=== PATIENT | female | born 1990 | race American Indian/Alaskan Native ===

== ENCOUNTER 2022-06-16 21:54 | Emergency (ER) | payer MEDICAID, SELFPAY ==
[2022-06-16 22:05] VITALS: BP 144/89; PULSE 122; RESP 20; TEMP 36.8; O2SAT 98; BMI 33.3
[2022-06-16] MEDS: buPROPion SR 150 MG TAB PO (23:22)
--- NOTE | 2022-06-16 23:24 | ED_ITS ---
HPI - General Adult General Chief complaint: Extremity Injury, Upper Stated complaint: Right arm pain Time Seen by Provider: 06/16/22 22:18 History of Present Illness HPI narrative: This 31-year-old woman comes to the emergency department today because of paresthesias in her right arm and leg. She also endorses methamphetamine addiction for many years. She is unaware of any specific injury to her arm or a leg but she notices abnormal sensations there as if it is swollen. The swelling seems to be migratory. She says she also feels it in her right anterior chest and she wonders if she might have a blood clot or something like that. She has not been sick with fever or chills. She has had sweats sometimes. She is does not have shortness of breath or cough. She endorses sharp point chest pain on the right and pain near the olecranon process on the right arm and near the an kle on the right. No abdominal symptoms or other symptoms. She denies any other substance use but has been using a little bit of alcohol. Related Data Home Medications Medication Instructions Recorded Confirmed HYDROCODONE/ACET (HYDROCODONE 1 tab PO Q4HP ##0 03/14/12 BITARTRATE-ACETAMINOPHEN) alprazolam 0.5 mg tablet (Xanax) 0.5 mg PO Q8HP ##0 03/14/12 mupirocin 2 % topical ointment 2 % topical TID ##15 03/14/12 Previous Rx's Medication Instructions Recorded bupropion HCl 150 mg tablet,12 hr 150 mg PO BID #20 ea 06/16/22 sustained-release Allergies Allergy/AdvReac Type Severity Reaction Status Date / Time No Known Drug Allergies Allergy Verified 06/16/22 22:14 Review of Systems Review of Systems Narrative: Complete review of systems is negative other than as noted above. Patient History Social History Smoking Status: Current every day smoker Smoking Status: Current every day smoker tobacco type: cigarettes alcohol intake frequency: holidays/special occasions only Substance Use Type: methamphetamine Exam Narrative Exam Narrative: GENERAL: Alert, cooperative and in no distress. HEAD: Atraumatic. Normocephalic. EYES: Sclera are clear without icterus. Extraocular movements are full. ENT: No rhinorrhea. Oropharynx is moist. Mouth exam is benign. NECK: Supple. Full range of motion. CARDIOVASCULAR: Normal rate and rhythm without murmur gallop or rub. RESPIRATORY: Clear to auscultation. Breath sounds equal bilaterally. No wheezes, rales, or rhonchi. GASTROINTESTINAL: Abdomen soft, non-tender, nondistended. EXTREMITIES: No edema, full range of motion. No obvious trauma. Careful and detailed palpation of the area in question on her right elbow area and right ankle revealed no palpable or discernible abnormality at all. BACK: Normal inspection, no CVA tenderness. NEURO: Nonfocal examination, normal speech, normal gait. SKIN: No rash or erythema of visible areas PSYCH: Normally oriented. Normal range of affect. Appropriate behavior Initial Vital Signs Initial Vital Signs: Vital Signs Temperature 98.3 F 06/16/22 22:05 Pulse Rate 122 H 06/16/22 22:05 Respiratory Rate 20 06/16/22 22:05 Blood Pressure 144/89 H 06/16/22 22:05 Pulse Oximetry 98 06/16/22 22:05 Oxygen Delivery Method 06/16/22 22:05 Course Orders Ordered: Discontinued Medications Bupropion HCl (Bupropion Sr 150 Mg Tab) 150 mg PO NOW ONE Stop: 06/16/22 23:12 Last Admin: 06/16/22 23:22 Dose: 150 mg Documented By: NR Vital Signs Vital signs: Vital Signs - 8 hr 06/16/22 22:05 Temperature 98.3 F Pulse Rate 122 H Respiratory Rate 20 Blood Pressure 144/89 H Pulse Oximetry 98 Oxygen Delivery Method Room Air Medical Decision Making MDM Narrative Medical decision making narrative: My suspicion is that her methamphetamine use is causing some degree of miss perception or hypersensitivity. Clearly no abnormality is present on her arms or legs. I did initiate stimulant use disorder treatment and arrange for outpatient follow-up. Discharge Plan Departure Patient Disposition: Home Clinical Impression: Other stimulant abuse, uncomplicated, Arm paresthesia, right Activity Restrictions/Additional Instructions: No dangerous abnormality is identified in your arms or legs. You do not have a blood clot, or an infection or dangerous nerve problem. No specific treatment is recommended at this time. I recommend follow-up with primary care to discuss this and other ongoing health issues. You should call [phone] and ask for a new patient appointment at [facility]. For methamphetamine addiction I recommend you follow-up with [facility]. Call the clinic at [phone] Saturday morning and make an appointment for new patient intake to help you with your stimulant addiction. Let them know that we have started you on bupropion. You took your 1st bupropion dose today and you should take 1 pill tomorrow and 1 pill on Saturday. Starting Saturday you should take 1 in the morning and 1 in the evening and continue taking it that way moving forward. Prescriptions: New bupropion HCl 150 mg tablet sustained-release 12 hr 150 mg PO BID Qty: 20 0RF Rx Instructions: One pill daily for the 1st 3 days then 1 pill b.i.d. after that No Action HYDROCODONE/ACET (HYDROCODONE BITARTRATE-ACETAMINOPHEN) 1 tab PO Q4HP Qty: 0 alprazolam [Xanax] 0.5 MG tablet 0.5 mg PO Q8HP Qty: 0 mupirocin 2 % ointment 2 % Topical TID Qty: 15 Referrals: Miscellaneous,Doctor, [Primary Care Provider] -
[2022-06-16 23:32] VITALS: BP 144/92; PULSE 104; RESP 18; O2SAT 99
== END 2022-06-16 23:33 | disposition home or self-care (01) ==
PROVIDERS: Emergency Provider Family Medicine Addiction Medicine
DX: F15.10 Other stimulant abuse, uncomplicated (principal); R20.2 Paresthesia of skin; R07.9 Chest pain, unspecified
CPT/HCPCS: 99283

== ENCOUNTER 2024-09-20 12:08 | Emergency (ER) | payer MEDICAID, OTHER, SELFPAY ==
[2024-09-20] VITALS (16 sets, daily range): BP systolic 129–146; BP diastolic 59–93; PULSE 99–129; RESP 16–25; TEMP 37.1; O2SAT 96–100; BMI 34.8
--- NOTE | 2024-09-20 12:39 | DI.US.S_ITS ---
PROCEDURE: US OB <= 14 WEEKS FETUS INDICATIONS: UNKNOWN DATES. SPOTTING 07/04/24 OUTSIDE/PRIOR DATING DATA: Last menstrual period (LMP): 07/04/2024. LMP-based estimated date of delivery (HELEN): 04/10/2025. First dating scan (date and location): 09/20/2024. Estimated date of delivery (HELEN) from first dating scan: 04/07/2025. The calculations are made using the ultrasound HELEN of 04/07/2025. TECHNIQUE: Real-time scanning was performed of the fetus and maternal pelvic organs, with image documentation. Endovaginal scanning was also performed to better visualize the fetus and maternal ovaries. COMPARISON: None. FINDINGS: Embryo: Single intrauterine gestation identified. [place] rump length measures 4.7cm corresponding to estimated gestational age of 11 weeks, 4 days. Heart rate: 163 Maternal organs: Not well visualized IMPRESSION: Single intrauterine gestation with crown-rump length of 4.7 cm corresponding to estimated gestational age of 11 weeks, 4 days which is concordant with clinical dating by LMP. Approved by: Cristin Vail M.D.,Ph.D. on 09/20/2024 at 15:40
--- NOTE | 2024-09-20 12:41 | ED.GENADULT ---
HPI - General Adult General Chief complaint: Toxicology Problem Stated complaint: , detox from drugs Time Seen by Provider: 09/20/24 12:25 History of Present Illness HPI narrative: 34-year-old currently , unknown dates possible LMP in May or June. Reports she has been using methamphetamine and marijuana regularly but denies opiates, she is interested in getting into detox. This is a desired and patient comes in voluntarily. Does not complain of vaginal bleeding or discharge. It has not yet felt the baby move. Two prior pregnancies were TABs. She states she has been to detox once at [facility]. Related Data Home Medications Medication Instructions Recorded Confirmed HYDROCODONE/ACET (HYDROCODONE 1 tab PO Q4HP ##0 03/14/12 BITARTRATE-ACETAMINOPHEN) alprazolam 0.5 mg tablet (Xanax) 0.5 mg PO Q8HP ##0 03/14/12 mupirocin 2 % topical ointment 2 % topical TID ##15 03/14/12 Previous Rx's Medication Instructions Recorded bupropion HCl 150 mg tablet,12 hr 150 mg PO BID #20 ea 06/16/22 sustained-release Allergies Allergy/AdvReac Type Severity Reaction Status Date / Time No Known Drug Allergies Allergy Verified 06/16/22 22:14 Review of Systems Review of Systems Narrative: Pertinent positive and negative findings as per HPI Patient History Social History Smoking Status: Current every day smoker Smoking Status: Current every day smoker tobacco type: cigarettes alcohol intake frequency: holidays/special occasions only Substance Use Type: methamphetamine Exam Initial Vital Signs Initial Vital Signs: Vital Signs Pulse Rate 122 H 09/20/24 12:17 Pulse Oximetry 99 09/20/24 12:17 General: Healthy appearing scared and anxious but in no acute distress. Able to give a complete and coherent history. Well-nourished well-developed HEENT: Moist mucous membranes, normal sclera with reactive pupils, Respiratory: Lungs are clear to auscultation, no wheezing no rales no rhonchi. Full and symmetrical air movement Cardiac: Tachycardic without murmurs Abdomen: Soft, nontender, I do not palpate fundus at this time Skin: Warm and dry, no rashes, no obvious methamphetamine ?picking? lesions Neurologic: Grossly neurologically intact with no obvious asymmetries or abnormalities Extremities: No trauma, well perfused Psych: Cooperative, appropriate insight and affect Course Orders Ordered: ED Orders 09/20/24 12:39 US OB <= 14 weeks fetus Stat 09/20/24 12:45 Consult to PRODUCTION GRIP - Non Cdl Driver Stat 09/20/24 13:55 ABO RH Type Stat Beta HCG, Quant [HCG Quantitative /Beta subunit] Stat Complete Blood Count AUTO DIFF Stat Comprehensive Metabolic Panel Stat Magnesium Stat 09/20/24 14:23 COVID19 -Nasal RAPID Stat 09/20/24 15:05 urine tox [Urine Drug Screen, Rapid] Stat Discontinued Medications Hydroxyzine HCl (Hydroxyzine Hcl 25 Mg Tablet) 50 mg PO NOW ONE Stop: 09/20/24 12:50 Last Admin: 09/20/24 12:57 Dose: 50 mg Documented By: MARKUS Sodium Chloride (Normal Saline 0.9%) 1,000 mls @ 1,000 mls/hr IV BOLUS ONE Stop: 09/20/24 13:38 Last Infusion: 09/20/24 13:51 Dose: Infused Documented By: Admin: 09/20/24 12:57 Dose: 1,000 mls/hr Documented By: MARKUS Vital Signs Vital signs: Vital Signs - 8 hr 09/20/24 12:17 09/20/24 12:18 09/20/24 12:18 Temperature Pulse Rate 122 H 120 H Respiratory Rate Blood Pressure 146/89 H Pulse Oximetry 99 99 Oxygen Delivery Method 09/20/24 12:30 09/20/24 12:30 09/20/24 12:31 Temperature 98.7 F Pulse Rate 113 H 105 H Respiratory Rate 18 Blood Pressure 140/93 H 146/89 H Pulse Oximetry 96 99 Oxygen Delivery Method Room Air 09/20/24 13:00 09/20/24 13:01 09/20/24 13:01 Temperature Pulse Rate 111 H 110 H Respiratory Rate 22 23 Blood Pressure 140/76 Pulse Oximetry 96 97 Oxygen Delivery Method 09/20/24 13:30 09/20/24 13:30 09/20/24 14:00 Temperature Pulse Rate 101 H Respiratory Rate 17 Blood Pressure 129/74 131/74 Pulse Oximetry 100 Oxygen Delivery Method 09/20/24 14:00 09/20/24 14:30 09/20/24 14:30 Temperature Pulse Rate 99 H 110 H Respiratory Rate 20 25 H Blood Pressure 130/78 Pulse Oximetry 98 99 Oxygen Delivery Method 09/20/24 15:00 09/20/24 15:00 09/20/24 15:12 Temperature Pulse Rate 110 H 111 H Respiratory Rate 22 16 Blood Pressure 136/71 Pulse Oximetry 96 97 Oxygen Delivery Method 09/20/24 15:12 09/20/24 15:30 09/20/24 16:00 Temperature Pulse Rate 119 H 105 H Respiratory Rate Blood Pressure 131/59 L Pulse Oximetry 97 99 Oxygen Delivery Method 09/20/24 16:30 09/20/24 17:00 Temperature Pulse Rate 122 H 118 H Respiratory Rate Blood Pressure Pulse Oximetry 97 97 Oxygen Delivery Method Medical Decision Making Lab Data 09/20/24 13:55 09/20/24 13:55 Labs: Lab Results 09/20/24 09/20/24 09/20/24 Range/Units 13:55 14:23 15:05 WBC 11.1 H (4.5-11.0) X10^3/uL RBC 4.21 (4.0-5.2) X10^6/uL Hgb 12.9 (12.0-16.0) g/dL Hct 36.9 (36-46) % MCV 87.6 (80-100) fL MCH 30.7 (26-34) PG MCHC 35.1 (30-36) % RDW 14.1 (11.6-14.8) % Plt Count 283 (150-400) X10^3/uL Neut % (Auto) 74.7 (50-75) % Lymph % (Auto) 16.7 L (25-40) % [place] % (Auto) 6.8 (3-14) % Eos % (Auto) 1.5 L (2-4) % Baso % (Auto) 0.3 (0-2) % Neut # (Auto) 8300 H (2537-2010) /uL Lymph # (Auto) 1900 (5863-8286) /uL [place] # (Auto) 800 (0-900) /uL Eos # (Auto) 200 (0-450) /uL Baso # (Auto) 0 (0-100) /uL Sodium 134 L (137-145) mmol/L Potassium 4.2 (3.4-5.1) mmol/L Chloride 108 H (98-107) mmol/L Carbon Dioxide 23 (22-32) mmol/L BUN 8 (7-17) mg/dL Creatinine 0.53 (0.52-1.04) mg/dL Estimated GFR > 60 (>60) mL/min BUN/Creatinine Ratio 15.1 (6-22) Glucose 102 H (70-100) mg/dL Calcium 8.6 (8.4-10.2) mg/dL Magnesium 1.7 (1.6-2.3) mg/dL Total Bilirubin 0.5 (0.2-1.3) mg/dL AST 26 (14-36) IU/L ALT 32 (<35) IU/L Alkaline Phosphatase 75 (38-126) U/L Total Protein 6.5 (6.3-8.2) g/dL Albumin 3.6 (3.5-5.0) g/dL Globulin 2.9 (1.7-4.1) g/dL Albumin/Globulin Ratio 1.2 (1.0-2.8) HCG, Quant 44178 mIU/mL U Opiates 300ng/mL cut Negative (Negative) Ur Oxycodone Screen Negative (Negative) Urine Methadone Screen Positive H (Negative) Ur Barbiturates Screen Negative (Negative) U Tricyclic Antidepress Negative (Negative) Ur Phencyclidine Scrn Negative (Negative) Ur Amphetamines Screen Negative (Negative) U Methamphetamines Scrn Negative (Negative) Ur MDMA Scrn (Ecstasy) Negative (Negative) U Benzodiazepines Scrn Negative (Negative) Urine Cocaine Screen Negative (Negative) U Marijuana (THC) Screen Positive H (Negative) Urine pH Normal (Normal) Urine Specific [place] Normal (Normal) Ur Creatinine Normal (Normal) SARS-CoV-2 (PCR) Negative (Negative) Blood Type O Positive MDM Narrative Medical decision making narrative: CC: , uncertain dates, chronic methamphetamine use asking for help with detox Complicating co-morbidities: , long-term methamphetamine use, housing instability, court date pending October 02 Data collected from: patient Differential considered: Methamphetamine withdrawal, ectopic , demise, Exam documented above, pertinent findings include: 34-year-old woman who actually appears quite healthy without dramatic sequelae yet of chronic methamphetamine use. Fundus is not appreciated outside of the pelvis this time. Lab Test results independently reviewed as above. Pertinent findings: CBC shows a white count of 11.1 without left shift. H and H is 12.9 and 36.9 platelets are normal Chemistries are entirely reassuring. Normal renal function. Urine today is currently showing methadone, no methamphetamine and marijuana Independently reviewed EKG: Sinus tach at a rate of 107, QTC of 432 Imaging studies independently reviewed: Preliminary Ob ultrasound shows size at 11 weeks 1 day, positive intrauterine viable fetus. This is consistent with bleeding patient believes happened around July 04 Consultations: Social work. No available beds at any of the facilities that do [facility] care, it is a Saturday afternoon. Possibility of going to [facility] for methamphetamine detox only Treatments: 1 L of fluid, hydroxyzine for anxiety Re-evaluations: Patient chose to leave prior to confirmation that she could be seen at any of the rehab facilities. [facility] was [facility] Discussion: 34-year-old 11 weeks 1 day with viable intrauterine fetus no care today, currently using methamphetamine, tobacco and marijuana comes in for help with detox. Labs are reassuring. She is going to phone screening with [facility] and we are waiting for confirmation. Heart rate did come down slightly with the hydroxyzine and fluid. Patient is currently demanding a ?not negotiable trip across the street to go have a cigarette?, rechecked with the social services aide and expects another 1-2 hours before we have confirmation from 1-2 hours before we have confirmation from [facility]. Discharge Plan Departure Patient Disposition: Home Clinical Impression: Methamphetamine use Qualifiers: Weeks of gestation: 11 weeks Qualified Code(s): Z3A.11 - 11 weeks gestation of Instructions: DI for -- Discomforts and Remedies Activity Restrictions/Additional Instructions: Congratulations on your . The ultrasound today shows a healthy baby growing in your uterus at 11 weeks and 1 day. This gives you a due date of April 10, 2025 Your blood work show would no signs of anemia, kidney function and liver function looked good. Your urine drug screen today had methadone, no methamphetamine and THC I am glad that you are considering getting into detox to give your baby the best chance for a healthy environment to develop. I am sorry that you did not choose to wait long enough for you to get a final answer from the detox facility on whether they had a bed available. You are welcome to call them, we were talking to [facility]. Their phone number is [phone] I would recommend vitamins, any brand or gummy of vitamin that you are able to tolerate is going to be okay You will need to establish care with an OBGYN or timing inspector. You can call [facility], , ask for help in establishing care for a 1st OB visit Prescriptions: No Action HYDROCODONE/ACET (HYDROCODONE BITARTRATE-ACETAMINOPHEN) 1 tab PO Q4HP Qty: 0 alprazolam [Xanax] 0.5 MG tablet 0.5 mg PO Q8HP Qty: 0 mupirocin 2 % ointment 2 % Topical TID Qty: 15 bupropion HCl 150 mg tablet sustained-release 12 hr 150 mg PO BID Qty: 20 0RF Rx Instructions: One pill daily for the 1st 3 days then 1 pill b.i.d. after that Referrals: Miscellaneous,Doctor, MD [Primary Care Provider] - Stand Alone Forms: Patient Portal/API/Survey
--- NOTE | 2024-09-20 12:51 | EKG_ITS ---
[address] [address] Test Date: 2024-09-20 Pat Name: Shavonne Tom Department: Room: Gender: Female Clinical Writer: JAMES : 1990 Requested By: Order Number: [id number] Reading MD: Jean Couch Measurements Intervals [place] Rate: 107 P: 31 DE: 130 QRS: 35 QRSD: 68 T: 18 QT: 324 QTc: 432 Interpretive Statements Sinus tachycardia Electronically Signed On 09-21-2024 7:53:10 PST by Jean Couch
[2024-09-20] MEDS: hydrOXYzine HCL 25 MG TABLET 50 MG PO (12:57)
[2024-09-20] MEDS: SODIUM CHLORIDE 0.9% 1,000 ML 1000 ML IV (12:57)
--- NOTE | 2024-09-20 13:01 | PC.NURSE ---
patient here for anxiety s/sx related to chronic meth use
[2024-09-20 14:15] LABS: Add Manual Diff / Slide Review NO; Basophils Absolute Auto 0 /uL (0-100); Basophils Percent Auto 0.3 % (0-2); Eosinophils Absolute Auto 200 /uL (0-450); Eosinophils Percent Auto 1.5 % (2-4); Hematocrit 36.9 % (36-46); Hemoglobin 12.9 g/dL (12.0-16.0); Lymphocytes Absolute Auto 1900 /uL (1100-4500); Lymphocytes Percent Auto 16.7 % (25-40); Mean Corpuscular HGB Conc 35.1 % (30-36); Mean Corpuscular Hemoglobin 30.7 PG (26-34); Mean Corpuscular Volume 87.6 fL (80-100); Monocytes Absolute Auto 800 /uL (0-900); Monocytes Percent Auto 6.8 % (3-14); Neutrophils Absolute Auto 8300 /uL (1500-7000); Neutrophils Percent Auto 74.7 % (50-75); Platelet Count 283 X10^3/uL (150-400); Red Blood Cell Count 4.21 X10^6/uL (4.0-5.2); Red Cell Distribution Width 14.1 % (11.6-14.8); White Blood Cell Count 11.1 X10^3/uL (4.5-11.0)
[2024-09-20 14:23] LABS: Alanine Aminotransferase 32 IU/L (<35); Albumin 3.6 g/dL (3.5-5.0); Albumin Globulin Ratio 1.2 (1.0-2.8); Alkaline Phosphatase 75 U/L (38-126); Aspartate Aminotransferase 26 IU/L (14-36); BUN Creatinine Ratio 15.1 (6-22); Bilirubin Total 0.5 mg/dL (0.2-1.3); Blood Urea Nitrogen 8 mg/dL (7-17); Calcium 8.6 mg/dL (8.4-10.2); Carbon Dioxide 23 mmol/L (22-32); Chloride 108 mmol/L (98-107); Estimated Glomerular Filt Rate > 60 mL/min (>60); Globulin 2.9 g/dL (1.7-4.1); Glucose 102 mg/dL (70-100); HEMOLYSIS < 15 (0-50); Sodium 134 mmol/L (137-145); Total Protein 6.5 g/dL (6.3-8.2)
[2024-09-20 14:28] LABS: Magnesium 1.7 mg/dL (1.6-2.3); Potassium 4.2 mmol/L (3.4-5.1)
[2024-09-20 14:57] LABS: COVID19 -Nasal RAPID Negative (Negative)
[2024-09-20 15:04] LABS: HCG Quantitative /Beta subunit 46669 mIU/mL
[2024-09-20 15:19] LABS: Ur Creatinine Normal (Normal); Ur Specific Gravity Normal (Normal); Urine pH Normal (Normal)
[2024-09-20 15:20] LABS: UR Morphine/Opiate cutoff 300 Negative (Negative); Urine Amphetamines Negative (Negative); Urine Barbiturates Negative (Negative); Urine Cocaine Negative (Negative); Urine MDMA Negative (Negative); Urine Methamphetamines Negative (Negative); Urine Phencyclidine Negative (Negative); Urine Tetrahydrocannabinol Positive (Negative)
[2024-09-20 15:21] LABS: Urine Benzodiazepines Negative (Negative); Urine Methadone Positive (Negative); Urine Oxycodone Negative (Negative); Urine Tricyclic Antidepressant Negative (Negative)
--- NOTE | 2024-09-20 15:22 | CM.SWNOTE ---
ED GARMENT FINISHER Assessment GARMENT FINISHER - Construction Cost Estimator Assessment GARMENT FINISHER/Construction Cost Estimator Assessment Time Spent with Patient Start date 09/20/24 Visit Start Time 14:30 End date 09/20/24 Visit End Time 15:00 Total time Care Management spent on 30 minutes patient visit-in minutes Substance Abuse Screening Include Onset, Duration, Intensity Presenting Problem Patient presents with anxiety and seeking detox from Methamphetamine use. Patient endorses almost daily meth use , last use was two days ago. Patient states she smokes up to 2 grams a day of meth and has been smoking for the last 20 years. Precipitating Event(s) Patient is , no hx of care and anxious about withdrawing from Methamphetamine , seeking treatment. Per US performed in ED patient is 11 weeks . Patient has boyfriend/father of baby as support but he is also struggling with meth use and presents with housing instability. Patient Strengths Patient states she has stable housing with roommates in [place], patient is seeking treatment and sobriety . Current Behavioral Health Provider(s) None reported Include Facility, Provider, Ph. # Family Hx of Behavioral Abuse None reported Rehab Facilities? ((Date(s), Location(s) No hx. ) Patient endorses hx of detox once. History of Withdrawal? Seizures? Patient endorses hx of anxiety , fatigue and crying when withdrawing. No seizure hx reported. Longest Period of Sobriety Patient endorses use for 20 years. Psychosocial information & Support Patient is 34 y/o Systems female who presents with her boyfriend. Patient resides with roommates in [place] on [address] Patient endorses safety at home. School/Work unemployed Legal Concerns Legal Matters - Outstanding Issues Patient endorses she has probate court to attend to on 09/29/24. Mental Status Orientation (Person/Place/Time) A/Ox4 Stated Mood anxious Affect (Congruent with Mood?) flat, congruent with mood Thought Content - Specify/Describe none reported Obsessions, Delusions, Hallucinations Thought Processes (Qrjpqdr-Jgsttkqz-Chtb coherent Fttmxich-Bwybwzry-Pbgzyxajhy- Qstwnlnxovhhgp-Tuptwem-Twrrmkbzgezb- Thought Blocking) Speech (Ocyfav-Kfyo-Cjflrbe-Rapid-Soft- soft/normal Loud-Pressured) Motor (Sqxjdm-Qfjxgvmhn-Thwe-Other) normal Insight (Dmea-Uoub-Qwrc/Limited) fair Judgement (Qulj-Vwuy-Tsjy/Limited) fair Impulse Control (Adequate-Impaired) adequate Memory (Btwtbxjcd-Ttrrel-Lssqdu, intact, not formally assessed Impaired-Intact) Concentration (Intact-Impaired) intact Attention (Intact-Impaired) intact Behavior (Appropriate-Inappropriate) appropriate Additional Comment Patient presents as calm, cooperative and communicative. Risk Assessment Suicidal Ideation (Plan) No Homicidal Ideation (Plan) No Intervention Intervention GARMENT FINISHER enters room to meet with patient. Patient is present with her boyfriend. Patient endorses anxiety withdrawing from Meth use, last use 2 days ago and patient presents seeking detox . Patient has not received or medical care throughout , per US patient is 11 weeks . GARMENT FINISHER provides patient and patient's partner with [employer] bus passes. GARMENT FINISHER seeks SUPP (Substance Using People) program inpatient facilities and calls all facilities in [facility], there is no availability or no answer at this time. GARMENT FINISHER calls [facility] and patient conducts intake screening with facility as they agree to review patient. It is the opinion of this GARMENT FINISHER that patient is appropriate for and will benefit from medical detox to address patient's withdrawal symptoms for stabilization and medication management. GARMENT FINISHER reviews this with ED provider who indicates agreement and understanding. Plan RA Plan GARMENT FINISHER to seek detox placement for patient, patient to f/u with treatment recommendations and outpatient f/u. LUIS Palumbo
--- NOTE | 2024-09-20 15:41 | CM.SWNOTE ---
Addendum entered by Shirley Gonzalez 09/20/24 17:46: BAG HANGER calls [facility] several times for updates, it is reported that there is concern for patient's positive tox screen for Methadone. When asked about this patient states she is not on Methadone and does not know how this happened. Patient and s/o choose to leave before hearing back from [facility] because patient wants to smoke a cigarette. Patient is encouraged to seek OB outpatient care. This BAG HANGER was on lunch when patient chose to leave. BAG HANGER informs [facility]. LUIS Palumbo Addendum entered by Shirley Gonzalez 09/20/24 15:53: BAG HANGER also calls [facility] for detox beds and it is reported that they do not accept women. LUIS Palumbo Original Note: ED BAG HANGER Note BAG HANGER reviews SUPP (Substance Using People) programs in [facility]. BAG HANGER calls [facility], it is reported that they have no female beds. It is recommended to call [facility] or [facility]. BAG HANGER calls [facility], it is recommended to call back tomorrow. BAG HANGER calls [facility] START program and leaves requesting return call. BAG HANGER calls [facility] and leaves requesting return call. BAG HANGER calls [facility] and leaves requesting return call. BAG HANGER calls [facility] and [facility] detox and it is reported that they may have female beds and can accept patients if they are detoxing from primarily one substance. Patient completes phone screening with [facility] and BAG HANGER faxes clinicals for review. RN reports to BAG HANGER that patient's s/o is requesting that patient smoke a cigarette, it is reported to patient that a nicotine patch can be offered. LUIS Palumbo
--- NOTE | 2024-09-20 16:16 | PC.NURSE ---
patient is expressing the desire to smoke a cigarette. She was informed that it's against hospital policy. They were also informed that she has only methadone and not methamphetamine in her system. The patient's sig other became upset and said we shouldn't even be here if you guys don't even know what in her system. POLISHER IMPLANT informed them both that she would attempt to get another update [facility]. The patient elected to stay and wait.
== END 2024-09-20 17:32 | disposition home or self-care (01) ==
PROVIDERS: Emergency Provider Emergency Medicine
DX: O26.891 Other specified pregnancy related conditions, first trimester (principal); R00.0 Tachycardia, unspecified; F15.10 Other stimulant abuse, uncomplicated; Z3A.11 11 weeks gestation of pregnancy
CPT/HCPCS: 36415; 76801; 80053; 80305; 83735; 84702; 85025; 86900; 86901; 87635; 93005; 96360; 99284; A9270

== ENCOUNTER 2024-09-25 21:35 | Emergency (ER) | payer OTHER, MEDICAID, SELFPAY ==
[2024-09-25 21:42] VITALS: BP 149/75; PULSE 122; RESP 17; TEMP 36.6; O2SAT 100; BMI 34.8
--- NOTE | 2024-09-25 22:11 | ED.RECABL ---
HPI - Recheck/Abnormal Lab/Rx General Chief Complaint: Recheck/Abnormal Lab/Rx Stated Complaint: Recheck UA to get into Detox Center Time Seen by Provider: 09/25/24 21:48 Source: patient Mode of arrival: Ambulatory History of Present Illness HPI narrative: Patient was a 34-year-old female who stated that she is here because the detox center stated that she needed a urine drug screen. She does admit to using meth. She would like to the 10 the detox. She was here a couple days ago and had a urinalysis which showed methadone but not methamphetamine. She states she does not use methadone. She reports she was only here to get a urine drug screen. Related Data Home Medications Medication Instructions Recorded Confirmed HYDROCODONE/ACET (HYDROCODONE 1 tab PO Q4HP ##0 03/14/12 BITARTRATE-ACETAMINOPHEN) alprazolam 0.5 mg tablet (Xanax) 0.5 mg PO Q8HP ##0 03/14/12 mupirocin 2 % topical ointment 2 % topical TID ##15 03/14/12 Previous Rx's Medication Instructions Recorded bupropion HCl 150 mg tablet,12 hr 150 mg PO BID #20 ea 06/16/22 sustained-release Allergies Allergy/AdvReac Type Severity Reaction Status Date / Time No Known Drug Allergies Allergy Verified 06/16/22 22:14 Review of Systems Review of Systems Narrative: See HPI Patient History Social History Smoking Status: Current every day smoker Smoking Status: Current every day smoker tobacco type: cigarettes and vaping alcohol intake frequency: holidays/special occasions only Substance Use Type: marijuana and methamphetamine Exam Initial Vital Signs Initial Vital Signs: Vital Signs Temperature 97.8 F 09/25/24 21:42 Pulse Rate 122 H 09/25/24 21:42 Respiratory Rate 17 09/25/24 21:42 Blood Pressure 149/75 H 09/25/24 21:42 Pulse Oximetry 100 09/25/24 21:42 Oxygen Delivery Method Room Air 09/25/24 21:42 Const General: cooperative and No ill appearing Resp Effort & Inspection: normal respiratory effort Cardio Rate: regular rate Neuro General: patient alert, patient awake and moves all extremities Course Orders Ordered: ED Orders 09/25/24 21:55 Urine Drug Screen, Rapid Stat Vital Signs Vital signs: Vital Signs - 8 hr 09/25/24 21:42 Temperature 97.8 F Pulse Rate 122 H Respiratory Rate 17 Blood Pressure 149/75 H Pulse Oximetry 100 Oxygen Delivery Method Room Air MDM - Recheck/Abnormal Lab/Rx Lab Data Attestation: I reviewed the patient's lab results. Labs: Lab Results 09/25/24 Range/Units 21:55 U Opiates 300ng/mL cut Negative (Negative) Ur Oxycodone Screen Negative (Negative) Urine Methadone Screen Negative (Negative) Ur Barbiturates Screen Negative (Negative) U Tricyclic Antidepress Negative (Negative) Ur Phencyclidine Scrn Negative (Negative) Ur Amphetamines Screen Positive H (Negative) U Methamphetamines Scrn Positive H (Negative) Ur MDMA Scrn (Ecstasy) Negative (Negative) U Benzodiazepines Scrn Negative (Negative) Urine Cocaine Screen Negative (Negative) U Marijuana (THC) Screen Positive H (Negative) Urine pH Normal (Normal) Urine Specific Hayden Normal (Normal) Ur Creatinine Normal (Normal) MDM Narrative Medical decision making narrative: Urinalysis is positive for methamphetamine and also marijuana. A copy of this was sent to her detox center of choice and a copy was given to her as well. Patient was discharged to attend detox. Discharge Plan Departure Patient Disposition: Home Clinical Impression: Methamphetamine use Activity Restrictions/Additional Instructions: You are medically cleared to proceed for detox. Prescriptions: No Action HYDROCODONE/ACET (HYDROCODONE BITARTRATE-ACETAMINOPHEN) 1 tab PO Q4HP Qty: 0 alprazolam [Xanax] 0.5 MG tablet 0.5 mg PO Q8HP Qty: 0 mupirocin 2 % ointment 2 % Topical TID Qty: 15 bupropion HCl 150 mg tablet sustained-release 12 hr 150 mg PO BID Qty: 20 0RF Rx Instructions: One pill daily for the 1st 3 days then 1 pill b.i.d. after that Referrals: Miscellaneous,Doctor, MD [Primary Care Provider] - Stand Alone Forms: Patient Portal/API/Survey
[2024-09-25 22:23] LABS: Ur Creatinine Normal (Normal); Ur Specific Gravity Normal (Normal); Urine Amphetamines Positive (Negative); Urine Cocaine Negative (Negative); Urine Methamphetamines Positive (Negative); Urine Opiates Negative (Negative); Urine THC Positive (Negative); Urine pH Normal (Normal)
[2024-09-25 22:24] LABS: Urine Barbiturates Negative (Negative); Urine Benzodiazepines Negative (Negative); Urine MDMA Negative (Negative); Urine Methadone Negative (Negative); Urine Oxycodone Negative (Negative); Urine Phencyclidine Negative (Negative); Urine Tricyclic Antidepressant Negative (Negative)
--- NOTE | 2024-09-25 22:30 | PC.NURSE ---
Faxed UA tox screen to [facility]. Patient given paper copy for admission.
--- NOTE | 2024-09-25 22:33 | PC.NURSE ---
Faxed UA tox screen results to [facility]. Printed copy given to patient for admission.
== END 2024-09-25 22:34 | disposition home or self-care (01) ==
PROVIDERS: Emergency Provider Emergency Medicine
DX: F15.10 Other stimulant abuse, uncomplicated (principal)
CPT/HCPCS: 80305; 99281; 99282

== ENCOUNTER 2025-05-23 01:07 | Emergency (ER) | payer OTHER, SELFPAY ==
[2025-05-23] VITALS (9 sets, daily range): BP systolic 117–145; BP diastolic 75–97; PULSE 85–109; RESP 14–20; TEMP 36.5; O2SAT 95–99; BMI 36.8
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
--- NOTE | 2025-05-23 03:05 | DI.CT.S_ITS ---
PROCEDURE: CT SOFT TISSUE NECK W CON INDICATIONS: right neck swelling x weeks, inc 4d on Amox TECHNIQUE: After the administration of intravenous contrast, 3.0 mm axial sections acquired from the sella to the aortic arch. 3 mm thick coronal and sagittal reformats were generated. For radiation dose reduction, the following was used: automated exposure control. COMPARISON: None. FINDINGS: Lymph nodes: No enlarged lymph nodes seen throughout the neck. Vessels: Visualized vasculature appears patent. Neck spaces: Large cystic lesion centered at the right angle of the mandible measures 4.6 cm in diameter and appears well in capsulated. No significant adenopathy present. Glands: The parotid and submandibular glands appear normal. Thyroid gland Miscellaneous: Visualized brain and orbits appear normal. Lung apices appear clear. Superficial soft tissues appear normal. Bones: No suspicious bony lesions. Visualized sinuses and mastoids appear unremarkable. IMPRESSION: Right neck large soft tissue cyst. Differential possibilities include infected branchial cleft cyst, abscess and suppurative adenopathy. Note: This final report is concordant with the preliminary after-hours interpretation provided by [employer] Approved by: Bora Gordon M.D. on 05/23/2025 at 8:40
--- NOTE | 2025-05-23 03:17 | PC.NURSE ---
Pt to imaging via ED stretcher with non destructive testing technician
[2025-05-23 03:20] LABS: Add Manual Diff / Slide Review NO; Hematocrit 38.7 % (36-46); Hemoglobin 13.9 g/dL (12.0-16.0); Lymphocytes Absolute Auto 2300 /uL (1100-4500); Mean Corpuscular HGB Conc 36.0 % (30-36); Mean Corpuscular Hemoglobin 29.9 PG (26-34); Mean Corpuscular Volume 83.3 fL (80-100); Platelet Count 320 X10^3/uL (150-400)
[2025-05-23 03:45] LABS: Alanine Aminotransferase 62 IU/L (<35); Albumin 4.2 g/dL (3.5-5.0); Albumin Globulin Ratio 1.2 (1.0-2.8); Alkaline Phosphatase 132 U/L (38-126); Blood Urea Nitrogen 17 mg/dL (7-17); Calcium 8.9 mg/dL (8.4-10.2); Carbon Dioxide 24 mmol/L (22-32); Chloride 105 mmol/L (98-107); Estimated Glomerular Filt Rate > 60 mL/min (>60); Globulin 3.5 g/dL (1.7-4.1); Glucose 102 mg/dL (70-99); HEMOLYSIS 20 (0-50); Potassium 4.0 mmol/L (3.4-5.1); Sodium 138 mmol/L (137-145); Total Protein 7.7 g/dL (6.3-8.2)
[2025-05-23 03:52] LABS: Strep Grp A by PCR Rapid Negative (Negative)
[2025-05-23] MEDS: DEXAMETHASONE 10 MG/ML VIAL IV (04:27)
[2025-05-23] MEDS: KETOROLAC 30 MG/ML VIAL 15 MG IV (04:27)
[2025-05-23] MEDS: AMPICILLIN/SULBACTAM 3 GM 3 GM in SODIUM CHLORIDE 0.9% 100 ML IV (04:27)
== END 2025-05-23 05:06 | disposition home or self-care (01) ==
PROVIDERS: Emergency Provider Emergency Medicine
DX: R22.1 Localized swelling, mass and lump, neck (principal)
CPT/HCPCS: 36415; 70491; 80053; 85025; 86318; 87651; 96365; 96375; 99284; J0295; J1100; J1885; Q9967